=== PATIENT | female | born 1950 | race American Indian/Alaskan Native ===

== ENCOUNTER 2017-08-28 07:42 | Outpatient (CLI) | payer MEDICARE ==
--- NOTE | 2017-09-02 12:20 | Vascular Lab Report ---
Left Lower Extremity Venous Duplex Study: Reason for Exam: Pain and swelling of the left lower extremity. Comments on the Right: A limited duplex study was done of the proximal veins of the right lower extremity. All veins visualized are freely compressible without evidence of internal echogenicity. Flow is spontaneous and phasic throughout. No evidence of acute or chronic thrombus is seen in any of the vessels visualized. Comments on the Left: Acute nonocclusive deep venous thrombosis is noted in the superficial femoral vein and popliteal vein. The thrombus extends into the tibial veins. The remaining veins visualized are freely compressible without evidence of internal echogenicity. Spontaneous and phasic flow is present proximally. Impression: Extensive acute deep venous thrombosis in the left lower extremity.
== END 2017-08-28 07:43 | disposition home or self-care (01) ==
LOC: VAS 07:42
PROVIDERS: ATTEND Internal Medicine
DX: I82.412 Acute embolism and thrombosis of left femoral vein (principal); I82.432 Acute embolism and thrombosis of left popliteal vein